=== PATIENT | female | born 1980 | race African-American/Black ===

== ENCOUNTER 2017-04-04 11:44 | Emergency (ER) | payer OTHER ==
[~2017-04-04] VITALS: Ht 167.6 cm; Wt 90.9 kg
[2017-04-04 11:55] VITALS: TEMP 37.3; Ht 167.6 cm; Wt 90.9 kg
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
[2017-04-04] MEDS ORDERED: HYDR25TA4 PO (13:11)
[2017-04-04] MEDS ORDERED: FLVHFA110 INH (13:11)
[2017-04-04] MEDS ORDERED: PRED10TA PO ×2 (13:11→15:32)
[2017-04-04] MEDS ORDERED: VNTHFA/IN INH (13:11)
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
[2017-04-04] MEDS ORDERED: IBUPROFEN 600 MG TAB PO STA (13:26)
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
[2017-04-04] MEDS ORDERED: CYCL5TAB PO (14:49)
[2017-04-04 15:39] VITALS: BP 141/97; PULSE 104; O2SAT 100
== END 2017-04-04 15:40 | disposition home or self-care (01) ==
LOC: C.EDD 11:45
DX: S60.221A Contusion of right hand, initial encounter (principal); S09.90XA Unspecified injury of head, initial encounter; V43.52XA Car driver injured in collision with other type car in traffic accident, initial encounter; Y93.89 Activity, other specified; Y92.411 Interstate highway as the place of occurrence of the external cause; J45.909 Unspecified asthma, uncomplicated; I10 Essential (primary) hypertension